=== PATIENT | male | born 1995 | race Caucasian/White ===

== ENCOUNTER 2021-02-22 18:36 | Emergency (ER) | payer OTHER ==
[2021-02-22 19:06] LABS: BASOPHIL 0.4 % (0-2); EOSINOPHIL 3.5 % (0-5); HCT 49.4 % (42.0-52.0); HGB 17.6 g/dl (13.2-18.0); LYMPHOCYTE 19.4 % (15-48); MCH 31.4 pg (25.0-31.0); MCHC 35.6 g/dL (32.0-36.0); MCV 88.2 fL (78.0-100.0); MONOCYTE 6.7 % (0-12); MPV 10.9 fL (6.0-9.5); NEUTROPHIL 69.9 % (41-80); NRBC 0; PLT 214 K/uL (150-400); RDW 12.1 % (11.5-14.0); WBC 8.3 K/uL (4.0-10.5)
[2021-02-22 19:22] LABS: ALBUMIN 4.7 g/dL (3.4-5.0); BILIRUBIN - TOTAL 0.5 mg/dL (0.2-1.0); BUN/CREAT RATIO (CALC) 10.2 RATIO; CREATININE 0.98 mg/dL (0.67-1.17); GLOBULIN (CALCULATION) 3.3 g/dL; MAGNESIUM 1.9 mg/dL (1.8-2.4); POTASSIUM 3.8 mmol/L (3.5-5.1)
[2021-02-22] MEDS ORDERED: COZAAR25 MG PO (20:49)
[2021-02-22] MEDS ORDERED: VENTOLIN HFA18 GM INH (20:49)
[2021-02-22] MEDS ORDERED: PEPCID AC20 MG PO (20:54)
== END 2021-02-22 21:05 | disposition home or self-care (01) ==
LOC: FER 18:36
PROVIDERS: Emergency Medicine
DX: K21.9 Gastro-esophageal reflux disease without esophagitis (principal); R07.89 Other chest pain; R03.0 Elevated blood-pressure reading, without diagnosis of hypertension; R06.02 Shortness of breath; R00.2 Palpitations; J45.909 Unspecified asthma, uncomplicated; Z91.018 Allergy to other foods; Z91.040 Latex allergy status
CPT/HCPCS: 36415; 71045; 80053; 83735; 84443; 84484; 85025; 93005; C9113

== ENCOUNTER 2021-05-26 11:07 | Emergency (ER) | payer OTHER ==
[~2021-05-26 11:07] MED LIST: COZAAR25 MG PO; PEPCID AC20 MG PO; VENTOLIN HFA18 GM INH
== END 2021-05-26 12:30 | disposition home or self-care (01) ==
LOC: FER 11:07
DX: J02.9 Acute pharyngitis, unspecified (principal)
CPT/HCPCS: 87880; 99283